=== PATIENT | male | born 1975 | race Caucasian/White ===

== ENCOUNTER → 2017-04-07 | Outpatient (REF) ==
[~2017-04-07] MED LIST: CLO1 PO; HYDR12.556 PO; METO-259 PO; NO CURRENT MEDS; PEN250 PO; PER PO
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
== END ==
LOC: RAD 02:15 → EDSTATUS 04-09 08:12
DX: S02.0XXA Fracture of vault of skull, initial encounter for closed fracture (principal); S02.401A Maxillary fracture, unspecified side, initial encounter for closed fracture; X58.XXXA Exposure to other specified factors, initial encounter
CPT/HCPCS: 70250